=== PATIENT | male | born 1945 | race Two or more races ===

== ENCOUNTER 2017-01-22 18:16 | Emergency (ER) | payer SELFPAY ==
[~2017-01-22] VITALS: Ht 172.7 cm; Wt 72.6 kg
[2017-01-22 18:20] VITALS: BP 130/80
--- NOTE | 2017-01-22 18:44 | Emergency Room Report ---
History of Present Illness General Chief Complaint: Altered Mental Status Source: Patient, EMS (Josef Calvo) Present Illness HPI The patient is a approximately 50-year-old male brought in by EMS after increased altered mental status. Patient was reportedly found on the ground. The patient had no name as well as on past medical history. History is markedly limited by patient's poor cooperation and altered mental status (Josef Calvo) Allergies: Coded Allergies: UNABLE TO ASSESS (Unverified , 01/22/17) Patient History Reviewed Nursing Documentation: PMH: Agreed, PSxH: Agreed (Josef Calvo) Nursing Documentation-PMH Past Medical History Deferred: Pt Cognitively Impaired (Josef Calvo) Review of Systems All Other Systems: negative except mentioned in HPI (Josef aClvo) Physical Exam Vital Signs Date Time Temp Pulse Resp B/P (MAP) Pulse Ox O2 Delivery O2 Flow Rate FiO2 01/22/17 18:07 97.0 83 16 143/80 99 Room Air Sp02 EP Interpretation: reviewed, normal General Appearance: normal inspection, well appearing, no apparent distress, alert, GCS 15 Head: atraumatic ENT: normal ENT inspection, hearing grossly normal, normal voice Neck: normal inspection, full range of motion, supple, no bony tend Respiratory: normal inspection, lungs clear, normal breath sounds, no respiratory distress, no retraction, no wheezing Cardiovascular #1: regular rate, rhythm, no edema Gastrointestinal: normal inspection, normal bowel sounds, non tender, soft, no guarding, no hernia Genitourinary: no CVA tenderness Musculoskeletal: normal inspection, back normal, normal range of motion Neurologic: normal inspection, alert, responsive, speech normal Psychiatric: normal inspection, judgement/insight normal, mood/affect normal Skin: normal inspection, normal color, no rash (Josef Calvo) Medical Decision Making Diagnostic Impression: Primary Impression: Alcohol intoxication ER Course Patient for presented altered mental status.Differential diagnosis included but was not limited to ischemic stroke, subarachnoid hemorrhage, hypoglycemia, spinal cord injury, neurodegenerative disorder, urinary tract infection, hypoxemia. The patient appears be intoxicated with alcohol. The CT imaging of the head was ordered due to patient's slurring speech inability to obtain a history (Josef Calvo) ER Course Patient now clinically sober, has been observed in the emergency room for more than 5 hours, no tremors, no tongue fasciculations, patient is not in acute distress Patient is discharged to home (Talha Lucia M.D.) Last Vital Signs Date Time Temp Pulse Resp B/P (MAP) Pulse Ox O2 Delivery O2 Flow Rate FiO2 01/22/17 18:07 97.0 83 16 143/80 99 Room Air (Josef Calvo) Disposition: HOME, SELF-CARE Condition: Improved Patient Instructions: Alcohol Intoxication, [id number] Josef Calvo Jan 22, 2017 18:44 Talha Lucia M.D. Jan 23, 2017 03:35
[2017-01-22] MEDS ORDERED: Thiamine 100mg tab ORAL ONE (20:15)
[2017-01-22 21:30] VITALS: BP 135/79
[2017-01-23] MEDS ORDERED: Nitroglycerin Subl 0.4mg tab SL PRN
[2017-01-23] MEDS ORDERED: Albuterol/Ipratropium 3ml neb HHN PRN
[2017-01-23] MEDS ORDERED: Morphine Sulfate 2mg/ml Inj IVP PRN
[2017-01-23] MEDS ORDERED: Miralax 17gm pkt ORAL PRN
[2017-01-23 00:05] VITALS: BP 132/84
[2017-01-23] MEDS ORDERED: Vancomycin 1 GM in D5W 275 ML IV SCH (00:30)
[2017-01-23 03:05] VITALS: BP 124/81
[2017-01-23 05:50] VITALS: BP_SYST 124; BP_SYST 132; BP_DIAS 79; BP_DIAS 81
[2017-01-23] MEDS ORDERED: Cefepime HCl 2 GM in D5W 110 ML IV SCH (09:00)
[2017-01-23] MEDS ORDERED: Heparin 5000 units/ml inj SUBQ SCH (09:00)
--- NOTE | 2017-01-23 10:13 | Diagnostic Imaging Report ---
Indications: Altered metal status Technique: Spiral acquisitions obtained through the brain. Angled axial and coronal 5 x 5 mm slices were reconstructed. Total dose length product 1491 mGycm. CTDI vol(s) 70 mGy. Dose reduction achieved using automated exposure control Comparison: None Findings: Again demonstrated is age-related enlargement of the ventricles and extra axial CSF spaces. No acute hemorrhage or edema. No mass effect or midline shift. Intact calvarium. Visualized orbits and sinuses are unremarkable. Focal areas of scalp soft tissue swelling are seen in the right supraorbital and right high parietal region and left parietal region. Impression: Age-related changes. Negative for acute intracranial bleed or mass effect The CT scanner at [facility] is accredited by the [employer] and the scans are performed using protocols designed to limit radiation exposure to as low as reasonably achievable to attain images of sufficient resolution adequate for diagnostic evaluation.
== END 2017-01-23 05:50 | disposition home or self-care (01) ==
LOC: EDBD 18:16 → EMR 18:48
DX: F10.129 Alcohol abuse with intoxication, unspecified (principal); R41.82 Altered mental status, unspecified
CPT/HCPCS: 70450; 96374; 96375; 99284